=== PATIENT | male | born 1970 | race Caucasian/White ===

== ENCOUNTER 2023-06-26 13:31 | Outpatient (CLI) | payer BC, OTHER | END 2023-06-26 14:08 | LOC: SLEEP 13:31 | PROVIDERS: ATTEND Otolaryngology Otolaryngology/Facial Plastic Surgery | DX: G47.33 Obstructive sleep apnea (adult) (pediatric) (principal); G47.36 Sleep related hypoventilation in conditions classified elsewhere | CPT/HCPCS: G0399 ==